=== PATIENT | female | born 1965 | race Caucasian/White ===

== ENCOUNTER 2023-10-22 13:52 | Outpatient (CLI) | payer OTHER, SELFPAY ==
--- NOTE | ~2023-10-22 | CT_ITS ---
EXAMINATION: CT abdomen pelvis wo con DATE: 10/22/2023 14:10 INDICATION: Kidney stone. TECHNIQUE: Computed tomography (CT) of the abdomen and pelvis was performed without intravenous contr ast. Automated exposure control and iterative reconstruction technique were employed. The dose-length product was 183.91 mGy-cm. COMPARISON: None. FINDINGS: The visualized portions of the lung bases demonstrate minimal atelectasis. No pleural effus ion. The heart size is normal. No pericardial effusion. The liver and spleen are normal. There are ch anges of cholecystectomy. The pancreas, adrenal glands, and right kidney are normal. There is a 2 mm stone in left kidney. There is a 13 mm uterine fibroid. There is diverticulosis of the colon without evidence of diverticulitis. There are no dilated loops of bowel. The appendix is normal. There are no pathologically enlarged lymph nodes. There is no free intraperitoneal fluid. There are chronic bilat eral L5 pars defects. There is 4 mm anterolisthesis of L5 on S1. There is severe lower lumbar spondyl osis. IMPRESSION: 1. 2 mm nonobstructing left kidney stone. Reviewed, dictated and finalized at location E.
== END 2023-10-22 13:53 | disposition home or self-care (01) ==
PROVIDERS: PCP Physician Assistant; Visit Provider Urology
DX: N20.0 Calculus of kidney (principal)
CPT/HCPCS: 74176